=== PATIENT | female | born 1995 | race Caucasian/White ===

== ENCOUNTER 2025-01-17 10:00 | Inpatient (IN) | payer OTHER, SELFPAY ==
[2025-01-17] VITALS (65 sets, daily range): BP systolic 101–140; BP diastolic 58–120; PULSE 47–216; RESP 13–18; TEMP 36.3–36.8; O2SAT 86–100; BMI 45.6
--- NOTE | 2025-01-17 11:59 | WPDANESEPPF ---
Anes - Initial Pre Proc Eval Procedure: Operation Date: 01/17/25 12:00 Proposed Procedures p Primary Section - Ravin Lemus MD Date/Time: 01/17/25 11:59 Surgeon: Ravin Lemus MD Pre Op Diagnosis: C/S Patient Data Age: 29 Gender: F Height: Weight: Last Vital Signs Pulse 75 01/17/25 11:31 BP 136/91 H 01/17/25 11:31 Allergies Allergy/AdvReac Type Severity Reaction Status Date / Time No Known Allergies Allergy Verified 01/11/25 13:05 Home Medications ?Medication ?Instructions ?Recorded ?Confirmed ?Type MFS-aomi-UQ-omega 3-fat com #1 27 cap PO DAILY 01/11/25 History mg-1 mg-300 mg capsule Patient hx anesthesia problems: none Family hx anesthesia problems: none Results Review: All pre-operative results and documents have been reviewed as part of the pre-operative evaluation. [facility] Past Medical History Medical History (Updated 01/17/25 @ 12:00 by Rush Hugo MD) Breech presentation Obesity Surgical History Surgical History S/P wisdom tooth extraction Family History Family History Sibling Asthma Depression Grandparent CVA (cerebrovascular accident due to intracerebral hemorrhage) Social History Social History Substance use: never Spiritual care concerns: No Anes - Eval Final PreProcedure Day of Procedure 01/17/25 11:59 Patient weight: morbidly obese Heart: regular rate and rhythm Lungs: clear to auscultation Airway: Mallampati scale class II Neurological: alert and oriented Last oral intake: >/= 8 hours ASA classification: III Emergent: no Anesthetic plan: proceed Anesthesia type and monitoring: regional spinal and standard monitoring Results Review: All pre-operative results and documents have been reviewed as part of the pre-operative evaluation. Informed Consent: The patient's anesthetic plan and its attendant risks and benefits were discussed with the patient/family/POA. Questions were solicited and answers provided to the satisfaction of the patient/family/POA.
[2025-01-17 12:03] LABS: Hematocrit 36.4 % (37.0-47.0); Hemoglobin 12.5 g/dL (12.0-15.0)
--- OUTSIDE RECORDS SUMMARY | 2025-01-17 12:06 | XMS_ITS | Encounter Summary ---
Author Organization [facility] Address [address] [place] [address] Phone Care Team Providers Care Luggage Attendant Name Role Phone Miscellaneous, Not In File Primary Care Provider Unavailable Encounter Details Date Type Department Care Team (Late st Contact Info) Description 02/09/2018 Orders Only [facility] ProviderMariah MD [address] [place] [id number] Social History Tobacco Use Types Packs/Day Years Used Date Smoking Tobacco: Never Smokeless Tobacco: Never Alcohol Use Standard Drinks/Week Comments Yes 0 (1 standard drink = 0.6 oz pur e alcohol) Comments No Sex and Gender Information Value Date Recorded Sex Assigned at Not on file Legal Sex Female 7:10 PM CDT Gender Identity Not on file Sexual Orientation Not on file Occupation Industry Job Start Date Job End Date [employer] Not on file Not on file Not on file documented as of this encounter Plan of Treatment Not on file documented as of this encounter Procedures Procedure Name Priority Date/Time Associated Diagnosis Comments DISCHARGE LABORATORY CUMULATIVE REPORT 02/09/2018 12:00 AM CDT documented in this encounter Results * DISCHARGE LABORATORY CUMULATIVE REPORT (02/09/2018 12:00 AM CDT) Narrative 02/09/2018 12:00 AM CDT Ordered by an unspecified provider. Historical Provider LAB BLOOD ORDERABLES Gabi l Result documented in this encounter Visit Diagnoses Not on filedocumented in this encounter Care Teams Luggage Attendant Relationship Specialty Start Date End Date Miscellaneous, Not In File PCP - General 09/07/17 documented as of this encounter
--- OUTSIDE RECORDS SUMMARY | 2025-01-17 12:06 | XMS_ITS | Clinical Summary ---
Author Organization [facility] Address [address] [place] [id number] Care Team Providers Care Batch Mixer Name Role Phone Miscellaneous, Not In File Primary Care Provider Unavailable Allergies No known active allergies Medications No known medications Active Problems No known active problems Immunizations Immunization Administration Dates Next Due HPV9 09/08/2017,03/01/2017 Family History Medical History Relation Name Comments Stroke Maternal Grandfather Stroke; Relation Name Status Comments Maternal Grandfather Social History Tobacco Use Types Packs/Day Years Used Date Smoking Tobacco: Never Smokeless Tobacco: Never Tobacco Cessation:Counseling Given: Not Answered Alcohol Use Standard Drinks/Week Comments Yes 0 (1 standard drink = 0.6 oz pur e alcohol) PHQ-2 Answer Date Recorded PHQ-2 Score 0 06/24/2019 Personal Safety Answer Date Recorded Getting School Help Needed Not on file 12/31 Comments No Sex and Gender Information Value Date Recorded Sex Assigned at Not on file Legal Sex Female 7:10 PM CDT Gender Identity Not on file Sexual Orientation Not on file Occupation Industry Job Start Date Job End Date [employer] Not on file Not on file Not on file Obstetrics History Para Term AB IAB SAB Ectopic Multiple Livin g Live Births 0 0 0 0 0 0 0 0 0 0 0 Last Filed Vital Signs Vital Sign Reading Time Taken Comments Blood Pressure 122/92 04/07/2024 11:03 AM CDT Pulse - - Temperature - - Respiratory Rate - - Oxygen Saturation - - Inhaled Oxygen Concentration - - Weight 126.1 kg (278 lb) 04/07/2024 11:03 AM CDT Height 167.6 cm (5' 6 ) 04/07/2024 11:03 AM CDT Body Mass Index 44.87 04/07/2024 11:03 AM CDT Plan of Treatment Health Maintenance Due Date Last Done Comments Hepatitis C Screening 1993 DTaP/Tdap/Td Vaccine (1 - Tdap) 2004 Varicella Vaccines (1 of 2 - 13+ 2-dose series) 2006 Hepatitis B Screening 2011 HPV Vaccines (3 - 3-dose series) 12/01/2017 09/08/2017, 03/01/2017 Depression Screening 02/11/2020 02/10/2019, 02/10/20 18 Cervical Cancer Screening 04/02/2024 04/02/2023 Covid-19 Vaccine ( season) 2024 08/19/2023, 10/05/2021, 02/15/2021, Additional history exists Influenza Vaccine (#1) 2024 , 07/29/2021, 07/30/2020, Additional history exists Regular Well Visit/Exam 18-64 04/07/2025 04/07/2024, 04/02/2023, 07/28/2021, Additional history exists Pneumococcal vaccine <65 Aged Out No longer eligible based on patient's age to complete this topic Procedures Procedure Name Priority Date/Time Associated Diagnosis Comments PAP AND HIGH RISK HPV, REFLEX TO GENOTYPING Routine 04/02/2023 10:12 AM CDT Encounter for gynecological examination (general) (routine) without abnormal findings from Last 3 Months or Most Recently Relevant to Health Maintenance Results * Pap and High Risk HPV, reflex to Genotyping (04/02/2023 10:12 AM CDT) Thin prep (Pap test) 04/02/2023 10:12 AM CDT 04/02/2023 10:12 AM CDT Narrative PATHOLOGY CH - 04/06/2023 11:33 AM CDT [facility] Department of Pathology [address] [place] [address] Final Report with Addendum Note to Patients: This report may contain a detailed description of human tissue sent by a health care provider to the laboratory for pathologic evaluation. The content of this report is essential for diagnosis and may provide important critical findings. This information may be unfamiliar to patients to review without a medical professional present. It is advised that the patient review this report in the presence of a health care provider who can answer questions and explain the details. Patient Name: GISSELL NOGUERA Address: [address] [place] [address] Gender: F : 1995 (Age: 27) Service: Location: N : [id number] [facility] #: [id number] Patient Type: SPECIMEN Taken: 04/02/2023 Received: 04/02/2023 Accessioned:: 04/05/2023 Reported: 04/06/2023 Physician(s): Kimmie Bourne RN, FAN BLADE ALIGNER Kimmie Bourne RN, FAN BLADE ALIGNER Diagnosis: SOURCE OF SPECIMEN SCREENING THIN PREP IMAGED PAP w/ HPV: STATEMENT OF ADEQUACY - Specimen satisfactory for interpretation; endocervical/transformation zone component absent or insufficient GENERAL CATEGORIZATION: - Negative for intraepithelial lesion or malignancy ROGER Castle(ASCP) Report Electronically Reviewed and Signed Out By [facility]) 04/06/2023 11:33:07Addenda: HPV Test Interpretation NEGATIVE for types 16, 18, 31, 33, 35, 39, 45, 51, 52, 56, 58, 59, 66 and 68. Test performed utilizing Gen-Probe Aptima assay. ROGER Spangler(ASCP)Report Electronically Reviewed and Signed Out By KARI SpanglerASC) 04/05/2023 16:26:51 Specimen(s) Received: A: SCREENING THIN PREP IMAGED PAP w/ HPV Clinical History: Last Menstrual Period: 03/31/23 The Pap test is a screening test used to aid in the detection of cervical cancer and its precursors. It should not be the sole means by which malignant and premalignant lesions are diagnosed. Both false negative and false positive results may occur. It also has poor sensitivity for the detection of endometrial lesions and should not be used to evaluate suspected endometrial abnormalities. For these reasons it is most important to obtain Pap tests at regular intervals. The performance characteristics of some immunohistochemical stains, fluorescence in-situ hybridization tests and immunophenotyping by flow cytometry cited in this report (if any) were determined by the Surgical Pathology Department at [facility] as part of an ongoing associate quality engineer program and in compliance with federally mandated regulations drawn from the Clinical Laboratory Improvement Act of 1988 (CLIA '88). Some of these tests rely on the use of analyte specific reagents and are subject to specific labeling requirements by the US Food and Drug Administration. Such diagnostic tests may only be performed in a facility that is certified by the Department of Health and Human Services as a high complexity laboratory under CLIA '88. The FDA has determined that such clearance or approval is not necessary. This test is used for clinical purposes. It should not be regarded as investigational or for research. Nevertheless, federal rules concerning the medical use of analyte specific reagents require that the following disclaimer be attached to the report: This test was developed and its performance characteristics determined by the Surgical Pathology Department [facility]. It has not been cleared or approved by the U. S. Food and Drug Administration. Kimmie Bourne NP LAB CYTOLOGY ORDERABLES Gabi andrade Result PATHOLOGY [address] [place] [address] from Last 3 Months or Most Recently Relevant to Health Maintenance Care Teams Batch Mixer Relationship Specialty Start Date End Date Miscellaneous, Not In File PCP - General 09/07/17
--- OUTSIDE RECORDS SUMMARY | 2025-01-17 12:06 | XMS_ITS | Referral Summary ---
Author Organization [facility] Address [address] [place] [phone] Care Team Providers Care Chucking Machine Set Up Operator Tool Name Role Phone Miscellaneous, Not In File Primary Care Provider Unavailable Allergies No known active allergies Medications No known medications Active Problems No known active problems Immunizations Immunization Administration Dates Next Due HPV9 09/08/2017,03/01/2017 Social History Tobacco Use Types Packs/Day Years [...] file Not on file Not on file Last Filed Vital Signs Vital Sign Reading [...] 04/07/2024 11:03 AM CDT Plan of Treatment Not on file Procedures Procedure Name Priority Date/Time Associated Diagnosis [...] PATHOLOGY CH - 04/06/2023 11:[address] [facility] Department of Pathology [address] [place] [id number] Final Report with Addendum Note to Patients: [...] the details. Patient Name: GISSELL NOGUERA Address: [address] [place] [address] Gender: F : 1995 (Age: 27) Service: Location: N : [id number] Hospital #: [id number] Patient Type: SPECIMEN Taken: 04/02/2023 Received: 04/02/2023 Accessioned:: 04/05/2023 Reported: 04/06/2023 Physician(s): Kimmie Bourne RN, DRY END TESTER Kimmie Bourne RN, DRY END TESTER Diagnosis: SOURCE OF SPECIMEN SCREENING THIN PREP IMAGED PAP w/ HPV: STATEMENT OF ADEQUACY - Specimen satisfactory for interpretation; endocervical/transformation zone component absent or insufficient GENERAL CATEGORIZATION: - Negative for intraepithelial lesion or malignancy ROGER Castle(ASCP) Report Electronically Reviewed and Signed Out By ROGER Castle(ASCP) 04/06/2023 11:33:07Addenda: HPV Test Interpretation NEGATIVE for types 16, 18, 31, 33, 35, 39, 45, 51, 52, 56, 58, 59, 66 and 68. Test performed utilizing Gen-Probe Aptima assay. ROGER Spangler(ASCP)Report Electronically Reviewed and Signed Out By ROGER Spangler(ASCP) 04/05/2023 16:26:51 Specimen(s) Received: A: SCREENING THIN [...] determined by the Surgical Pathology Department at [facility] as part of an ongoing quality assurance director program and in compliance with federally mandated [...] characteristics determined by the Surgical Pathology Department [facility]. It has not been cleared or approved by the U. S. Food and Drug Administration. Kimmie Bourne NP LAB CYTOLOGY ORDERABLES Gabi andrade Result PATHOLOGY [address] [place] [address] from Last 3 Months or Most Recently Relevant to Health Maintenance Care Teams Chucking Machine Set Up Operator Tool Relationship Specialty Start Date End Date Miscellaneous, Not In File PCP - General 09/07/17
[2025-01-17] MEDS: ACETAMINOPHEN 500 MG TABLET 1000 MG PO (12:20)
[2025-01-17] MEDS: LACTATED RINGERS 1,000 ML 125 ML IV CONT ×2 (12:26→13:27)
[2025-01-17 13:00] LABS: HIV 1/2 Ab P24 Ag Result Negative (Negative)
--- NOTE | 2025-01-17 13:06 | LDADM ---
This patient, Gissell Whaley, was admitted to Labor/Delivery/Recovery 119 on at 09:59. Plans for labor, pain management and were discussed with patient. Patient/family oriented to hospital policies and general routines including ID bracelet, bed and alarms, visiting hours, pain management, procedures, bathroom and other care routines, personal items, smoking policy, room service/diet and guest tray routines, infant security routines, and visiting hours. Patient/Family are encouraged to report perceived risks to care and to ask questions if they do not understand what they are told or what they should do. See OBIX for further documentation.
[2025-01-17 13:27] LABS: Syphilis IgG/IgM Antibody Negative (Negative)
[2025-01-17 13:47] LABS: Basophils Percent Auto 0.3 % (0.2-1.2); Eosinophils Absolute Auto 0.1 K/mm3 (0-0.3); Eosinophils Percent Auto 0.5 % (0-4.4); Hematocrit 37.4 % (37.0-47.0); Hemoglobin 12.6 g/dL (12.0-15.0); Immature Granulocyte Absolute 0.12 K/mm3 (0.00-0.031); Immature Granulocyte Percent A 1.1 % (0-0.5); Lymphocytes Absolute Auto 2.09 K/mm3 (0.9-3.2); Lymphocytes Percent Auto 18.4 % (18.3-44.2); Mean Corpuscular HGB Conc 33.7 g/dl (32-36); Mean Corpuscular Hemoglobin 31.9 pg (26-34); Mean Corpuscular Volume 94.7 fl (80-100); Mean Platelet Volume 11.4 fl (7.4-10.4); Monocytes Absolute Auto 0.7 K/mm3 (0.1-0.6); Monocytes Percent Auto 6.1 % (2.6-8.5); Neutrophils Absolute Auto 8.4 K/mm3 (1.3-6.7); Neutrophils Percent Auto 73.6 % (45.5-73.1); Platelet Count Result 216 k/mm3 (150-375); Red Blood Count 3.95 M/mm3 (4.2-5.4); Red Cell Distribution Width 13.5 % (11.5-14.5); White Blood Count 11.4 K/mm3 (4.5-10.0)
[2025-01-17] MEDS: FAMOTIDINE 20 MG/2 ML VIAL IV PUSH (14:07)
[2025-01-17] MEDS: ONDANSETRON INJ 4 MG/2 ML VIAL IV PUSH (14:08)
[2025-01-17] MEDS: ceFAZolin 3 GM/D5W 100 ML 100 ML IVPB (14:13)
--- NOTE | 2025-01-17 14:13 | PM.IMHP ---
H&P: HPI History of Present Illness Date/Time: 01/17/25 14:13 Chief Complaint: rupture of membranes Narrative: Patient is a 29 year old who presents for primary c section indicated for breech presentation and SROM at 38 weeks gestation. Her has been complicated by persistent breech presentation and obesity. testing has been reactive. No other complications. Reports SROM at 0700 this AM of clear fluid with continued leakage since then. No strong contractions, vaginal bleeding, and reports good movement. Denies headaches, vision changes, chest pain, dyspnea, RUQ pain or epigastric pain. Review of Systems Review of Systems: All systems reviewed & are unremarkable except as noted in HPI and below PMFSH Past Medical History Medical History (Updated 01/17/25 @ 14:16 by Ravin Lemus MD) Breech presentation Obesity Surgical History Surgical History S/P wisdom tooth extraction Family History Family History Sibling Asthma Depression Grandparent CVA (cerebrovascular accident due to intracerebral hemorrhage) Social History Social History Smoking status: Never smoker Substance use: never Do You Feel Safe in your Home?: Yes Lack of Transportation: No Lack of Food: Never True Current Housing: I Have Housing Concerned About Future Housing: No Difficulty Paying Gas/Electric Bills: No Difficulty Paying for Meds: No Currently Unemployed: No Education: Bachelor's Degree Difficulty w/ Childcare or Family Care: No Spiritual care concerns: No Meds Home Medications and Allergies Home Medications ?Medication ?Instructions ?Recorded ?Confirmed ?Type TLB-ynsk-AF-omega 3-fat com #1 27 cap PO DAILY 01/11/25 History mg-1 mg-300 mg capsule Allergies Allergy/AdvReac Type Severity Reaction Status Date / Time No Known Allergies Allergy Verified 01/17/25 12:03 Vital Signs Vital Signs - 24 hr 01/17/25 10:46 01/17/25 11:01 01/17/25 11:16 Pulse Rate 70 77 81 Blood Pressure 136/96 H 132/81 140/97 H Oxygen Delivery 01/17/25 11:31 01/17/25 12:01 01/17/25 13:06 Pulse Rate 75 75 Blood Pressure 136/91 H 132/81 Oxygen Delivery Room Air Exam Const: General: comfortable and no acute distress HENMT: Mouth: Yes moist mucous membranes Resp: Effort & Inspection: normal respiratory effort Cardio: Rate: regular rate Skin: General skin exam: normal color Extrem: General: normal to inspection Psych: Mental Status: mental status grossly normal H&P: Results Labs Labs: Short CBC 01/17/25 01/17/25 Range/Units 11:47 11:48 WBC 11.4 H (4.5-10.0) K/mm3 Hgb 12.6 12.5 (12.0-15.0) g/dL Hct 37.4 36.4 L (37.0-47.0) % Plt Count 216 (150-375) k/mm3 Assessment and Plan Assessment and plan (1) Rupture of membranes: Status: Acute Assessment and Plan: - rupture of clear fluid at 0700 this AM - ROMPlus positive - will proceed with PCS (2) Breech presentation: Code(s): O32.1XX0 - Maternal care for breech presentation, not applicable or unspecified Status: Acute Assessment and Plan: - breech presentation confirmed on admission - risks and benefits of primary c section discussed with patient who voices understanding - will proceed with primary c section
[2025-01-17] MEDS: OXYTOCIN 30 UNITS/NS 500 ML 30 UNITS/500 ML BAG 125 UNITS IV CONT (14:16)
--- NOTE | 2025-01-17 14:17 | WPDHPUPDATE1 ---
History and Physical Update Update Date/Time: 01/17/25 14:17 History and Physical has been reviewed, including an updated exam of the patient. There are NO changes in the patient's condition. Risks, benefits, and alternatives have been discussed and questions answered. Patient agrees to proceed with procedure.
--- NOTE | 2025-01-17 17:48 | OBPPTRN ---
Patient transferred to post room #283 via stretcher. Support person present. Oriented to unit, room, information board, rooming in, admission packet and security measures. Patient verbalizes understanding.
[2025-01-17] MEDS: ACETAMINOPHEN 325 MG TABLET 650 MG PO ×2 (18:37→23:51)
[2025-01-17] MEDS: KETOROLAC 15 MG/ML VIAL (*BKC) IV PUSH (18:38)
[2025-01-17] MEDS: DEXTROSE 5%/0.45% SOD CHL 1,000 ML 125 ML IV CONT (20:35)
[2025-01-18] MEDS: KETOROLAC 15 MG/ML VIAL (*BKC) IV PUSH ×3 (00:05→11:40)
[2025-01-18] MEDS: DEXTROSE 5%/0.45% SOD CHL 1,000 ML 125 ML IV CONT (03:25)
[2025-01-18] MEDS: ACETAMINOPHEN 325 MG TABLET 650 MG PO ×4 (05:30→23:54)
[2025-01-18 06:19] LABS: Basophils Absolute Auto 0.1 K/mm3 (0.0-0.1); Basophils Percent Auto 0.9 % (0.2-1.2); Eosinophils Absolute Auto 0.2 K/mm3 (0-0.3); Eosinophils Percent Auto 2.3 % (0-4.4); Hematocrit 41.8 % (37.0-47.0); Hemoglobin 13.3 g/dL (12.0-15.0); Immature Granulocyte Absolute 0.11 K/mm3 (0.00-0.031); Immature Granulocyte Percent A 1.4 % (0-0.5); Lymphocytes Absolute Auto 1.43 K/mm3 (0.9-3.2); Lymphocytes Percent Auto 18.6 % (18.3-44.2); Mean Corpuscular HGB Conc 31.8 g/dl (32-36); Mean Corpuscular Hemoglobin 27.5 pg (26-34); Mean Corpuscular Volume 86.5 fl (80-100); Mean Platelet Volume 9.6 fl (7.4-10.4); Monocytes Absolute Auto 0.6 K/mm3 (0.1-0.6); Monocytes Percent Auto 7.8 % (2.6-8.5); Neutrophils Absolute Auto 5.3 K/mm3 (1.3-6.7); Platelet Count Result 320 k/mm3 (150-375); Red Blood Count 4.83 M/mm3 (4.2-5.4); Red Cell Distribution Width 14.6 % (11.5-14.5); White Blood Count 7.7 K/mm3 (4.5-10.0)
[2025-01-18] MEDS: MULTIVIT/MIN/PREN/FOL AC/IRON TABLET 1 TAB PO (07:15)
[2025-01-18] MEDS: DOCUSATE SODIUM 100 MG CAPSULE PO ×2 (07:15→17:15)
[2025-01-18] MEDS: SIMETHICONE 80 MG TAB.CHEW PO ×3 (07:15→17:15)
[2025-01-18] MEDS: HYDROcodone/acetaminophen (*CRX) 5-325 MG TABLET 1 TAB PO ×2 (07:46→19:22)
[2025-01-18 08:15] VITALS: BP 118/75; PULSE 73; RESP 16; TEMP 36.6; O2SAT 97
--- NOTE | 2025-01-18 08:31 | P.PNOB_ITS ---
OB - PN: Subj Subjective Date/time seen: 01/18/25 08:31 Patient comments: no complaints, pain well controlled, tolerating diet and flatus present OB - PN: Obj Data Labs 01/18/25 04:34 Labs: Laboratory Results - last 24 hr 01/17/25 01/17/25 01/17/25 11:47 11:48 12:46 WBC 11.4 H RBC 3.95 L Hgb 12.6 12.5 Hct 37.4 36.4 L MCV 94.7 MCH 31.9 MCHC 33.7 RDW 13.5 Plt Count 216 MPV 11.4 H Immature Gran % (Auto) 1.1 H Neut % (Auto) 73.6 H Lymph % (Auto) 18.4 [place] % (Auto) 6.1 Eos % (Auto) 0.5 Baso % (Auto) 0.3 Lymph # (Auto) 2.09 [place] # (Auto) 0.7 H Eos # (Auto) 0.1 Baso # (Auto) 0.0 Abs Immat Gran (auto) 0.12 H Absolute Neuts (auto) 8.4 H Absolute Nucleated RBC 0.000 Nucleated RBC % 0.0 Syphilis IgG/IgM Ab Negative HIV 1&2 Ab/P24 Ag 4thGn Negative Blood Type A Positive Antibody Screen Negative 01/18/25 04:34 WBC 7.7 RBC 4.83 Hgb 13.3 Hct 41.8 MCV 86.5 D MCH 27.5 D MCHC 31.8 L RDW 14.6 H Plt Count 320 MPV 9.6 Immature Gran % (Auto) 1.4 H Neut % (Auto) 69.0 Lymph % (Auto) 18.6 [place] % (Auto) 7.8 Eos % (Auto) 2.3 Baso % (Auto) 0.9 Lymph # (Auto) 1.43 [place] # (Auto) 0.6 Eos # (Auto) 0.2 Baso # (Auto) 0.1 Abs Immat Gran (auto) 0.11 H Absolute Neuts (auto) 5.3 Absolute Nucleated RBC 0.000 Nucleated RBC % 0.0 Syphilis IgG/IgM Ab HIV 1&2 Ab/P24 Ag 4thGn Blood Type Antibody Screen OB - PN A/P Plan day: 1 Comments: Post Op LTCS - no problems, routine recovery Time Spent With Patient Time: Total time spent is greater than 50% in coordination of care (as documented) at patient's floor/unit and/or counseling patient: Exam 2 Const: General: cooperative, healthy appearing, comfortable and no acute distress Resp: Auscultation: no crackles, no rales, no rhonchi and no wheezes Cardio: Rhythm: regular rhythm Heart sounds: no click and no murmurs GI: Inspection: non-distended Auscultation: normal bowel sounds Extrem: General: normal to inspection, no pedal edema and no calf tenderness
--- NOTE | 2025-01-18 09:38 | PC.NURSE ---
0850: Introductions were made and communication board updated. Mother states that has been going well and latches easily. Mother attempted latching while this RN at bedside in cradle position. Mothers breast are larger, this RN suggested trying to place in football position for a deeper latch and for comfort. Assisted mother with placing infant in football position and mother was able to latch independently. Mother denies any pain or discomfort. Encouraged understanding of the benefits of skin to skin, stimulating with massage touch, changing positions to encourage wakefulness, how to watch for early feeding cues, responsive feeding, feeding on demand (aiming for 8-12 times in 24 hours, about every 2-3 hours), milk production, building/maintaining a milk supply, duration of feeding, signs of adequate intake/output and how to record on the feeding sheet. Mother voiced understanding of skin to skin, stimulating with massage touch, responsive feedings, hand expressed colostrum (this was demonstrated while latching and she was able to express colostrum), talking to infant to encourage if it has been 2 -2.5 hours since the start of the last , to call if infant does not latch, or if there is discomfort with .
[2025-01-18 12:56] VITALS: BP 143/85; PULSE 81; RESP 16; TEMP 36.6; O2SAT 98
--- NOTE | 2025-01-18 13:14 | WPDANLDPN2 ---
Anes-Prog Note L&D Date/Time: 01/18/25 13:14 Neuro status: Neuro function grossly intact. Vital Signs: Last Vital Signs Temp 36.6 C 01/18/25 12:56 Pulse 81 01/18/25 12:56 Resp 16 01/18/25 12:56 BP 143/85 H 01/18/25 12:56 Pulse Ox 98 01/18/25 12:56 O2 Del Method Room Air 01/17/25 17:25 Pain score (VAS): 0 I/O: Intake & Output 01/17/25 01/18/25 01/18/25 23:59 07:59 15:59 Intake Total 1300 2204.2 Output Total 550 1600 Balance 750 604.2 Patient feedback: Patient satisfied with anesthetic care.
--- NOTE | 2025-01-18 13:14 | WPDANLDNPN2 ---
Anes-Prog Note L&D-Neuraxial Date/Time: 01/18/25 13:14 Patient feedback: Patient satisfied with post-operative pain management.
[2025-01-18] MEDS: IBUPROFEN 600 MG TABLET PO ×2 (17:15→23:54)
[2025-01-18 23:55] VITALS: BP 135/92; PULSE 84; RESP 18; TEMP 36.7; O2SAT 98
[2025-01-19] MEDS: IBUPROFEN 600 MG TABLET PO ×3 (05:16→17:46)
[2025-01-19] MEDS: ACETAMINOPHEN 325 MG TABLET 650 MG PO ×3 (05:16→17:46)
[2025-01-19] MEDS: HYDROcodone/acetaminophen (*CRX) 5-325 MG TABLET 1 TAB PO ×2 (05:16)
[2025-01-19 07:45] VITALS: BP 130/85; PULSE 82; RESP 16; TEMP 37.3; O2SAT 97
--- NOTE | 2025-01-19 08:30 | PC.NURSE ---
Met with mother to discuss needs related to . She states that everything seems to be going well so far. She has some nipple soreness and is using hydrogel pads she brought from home. Encouraged her to call out for a latch check or any assistance needed today.
[2025-01-19] MEDS: DOCUSATE SODIUM 100 MG CAPSULE PO ×2 (08:45→16:34)
[2025-01-19] MEDS: MULTIVIT/MIN/PREN/FOL AC/IRON TABLET 1 TAB PO (08:45)
[2025-01-19] MEDS: SIMETHICONE 80 MG TAB.CHEW PO ×3 (08:45→16:34)
--- NOTE | 2025-01-19 16:08 | P.PCNOB_ITS ---
OB - Delivery Note Procedure Delivery date: 01/19/25 Pre-op diagnosis: Breech Presentation and Other (Spontaneous rupture of membranes) Post-op Diagnosis: Same Delivery monitor: External FHT Prior to decision for section, ACOG/SMFM labor guidelines were considered and discussed with the patient and staff. Decision made to proceed with the section.: Yes Procedure Performed: Primary Primary branch: low cervical, transverse Surgeon: Ravin Lemus MD Anesthesia type: Epidural Description of Procedure/Findings: The patient was taken to the operating room where she was placed in the dorsal supine position with a leftward tilt. The electronic monitor was placed and heart rate was found to be reassuring. She was prepped and draped in the normal sterile fashion, and anesthesia was checked to be adequate. A Pfannenstiel skin incision was made with the scalpel and carried through to the underlying layer of fascia with the scalpel. The fascia was incised in the midline and the incision extended laterally with the Castillo scissors. The superior aspect of the fascial incision was then grasped with Ginger clamps, elevated, and the underlying rectus muscles dissected off bluntly and with Castillo scissors. Attention was then turned to the inferior aspect of the fascial incision, which in similar fashion was grasped, elevated, and the rectus muscles dissected off.? The rectus muscles were then in the midline, and the peritoneum entered bluntly. The peritoneal incision was extended superiorly and inferiorly with good visualization of the bladder. With the bladder blade providing retraction and visualization, the lower uterine segment was incised in a transverse fashion with the scalpel. The uterine incision was then extended laterally. The bladder blade was removed and the 's breech was elevated and delivered atraumatically. The remainder of the infant was then delivered without difficulty, and the infant's nose and mouth were suctioned with the bulb suction. The umbilical cord was doubly clamped and cut. The was then handed off to the waiting nursing staff. Specimens then obtained as listed below. The placenta was then removed manually and the uterus was exteriorized and cleared of all clots and debris. The uterine incision was repaired with 0- Monocryl in a running, interlocked fashion. The posterior cul-de-sac was manually cleared of all clots and debris. The uterus was returned to the ab domen. The gutters were then manually cleared of all clots and debris.? The uterine incision was visualized to be hemostatic. The fascia was reapproximated with 0-Vicryl in a running fashion. The subcutaneous tissues were irrigated with warmed normal saline, and hemostasis was assured. The subcutaneous tissue was greater than 2 cm and closed in a running fashion with 2-0 plain gut suture.?The skin was closed with 4-0 monocryl in a running subcuticular stitch. Fundal pressure was applied to express remaining intrauterine clots and debris. The patient tolerated the procedure well. Sponge, lap, and needle counts were correct times three per nursing. The patient was taken to the recovery room in stable condition. Specimen: No Pathology: None sent Complications: No immediate complications Condition: Stable Disposition: [place] Baby Date of : 01/17/25 Gestational Age by Date: 36 gender: Male Weight (pounds): 8 Weight (ounces): 3 presentation: angelica breech Placenta delivery description: Expressed Cord Vessel Description: 3 Vessels and Delayed Cord Clamping
[2025-01-19 21:07] VITALS: BP 134/93; PULSE 106; RESP 18; TEMP 36.4; O2SAT 99
[2025-01-20] MEDS: ACETAMINOPHEN 325 MG TABLET 650 MG PO ×2 (00:09→06:13)
[2025-01-20] MEDS: IBUPROFEN 600 MG TABLET PO ×2 (00:09→06:13)
--- NOTE | 2025-01-20 08:00 | PC.NURSE ---
Consulted with mother concerning needs and she shared her ability to independently latch infant optimally without pain. Mother is feeding appropriately for growth of and understands stimulating to eat if needed. Infant has had appropriate feedings in the last 24 hours meets the outcomes for weight, output, blood sugar and jaundice at this time. Reinforced understanding of milk production, transition of milk, signs of adequate intake, transition of stool, prevention/relief of engorgement, plugged ducts, mastitis, responsive , community resources, and when to call a provider using the resource of the feeding sheet along with the mom and baby guide. She has a breast pump at home and declines a SDC referral. Mother voiced understanding of the information shared, is confident to continue effectively her infant at home, when to call for assistance, denies any additional assistance or education at this time. Reported to the Primary RN.
--- NOTE | 2025-01-20 08:19 | P.PNOB_ITS ---
OB - PN: Subj Subjective Date/time seen: 01/20/25 08:19 Patient comments: no complaints, pain well controlled, tolerating diet and flatus present OB - PN: Obj Data Labs 01/18/25 04:34 OB - PN A/P Plan day: 1 Comments: Post Op LTCS - no problems, routine recovery Time Spent With Patient Time: Total time spent is greater than 50% in coordination of care (as documented) at patient's floor/unit and/or counseling patient: Exam 2 Const: General: cooperative, healthy appearing, comfortable and no acute distress Resp: Auscultation: no crackles, no rales, no rhonchi and no wheezes Cardio: Rhythm: regular rhythm Heart sounds: no click and no murmurs GI: Inspection: non-distended Auscultation: normal bowel sounds Extrem: General: normal to inspection, no pedal edema and no calf tenderness
[2025-01-20 08:30] VITALS: BP 137/94; PULSE 77; RESP 16; TEMP 36.7; O2SAT 97
[2025-01-20] MEDS: DOCUSATE SODIUM 100 MG CAPSULE PO (08:36)
[2025-01-20] MEDS: MULTIVIT/MIN/PREN/FOL AC/IRON TABLET 1 TAB PO (08:36)
[2025-01-20] MEDS: SIMETHICONE 80 MG TAB.CHEW PO (08:36)
[2025-01-20 09:20] VITALS: BP 138/88; PULSE 72
--- NOTE | 2025-01-20 10:30 | PC.NURSE ---
Patient viewed the discharge video Mother & Baby Care, The First Two Weeks . Patient was given the opportunity and encouraged to ask questions. Patient verbalized understanding of information shared and has been given the mother/baby guide for home reference.
[2025-01-22 10:18] VITALS: BP 132/89; PULSE 86; RESP 18; TEMP 36.6; O2SAT 100
--- NOTE | 2025-01-22 18:29 | PM.OBDSVD ---
DS: Admitting Diagnosis Discharge Date 01/20/25 Admitting Diagnosis breecg OB - DS: Summary OB Procedures : None OB Procedures Intrapartum: OB Procedures: : None Peripartum Data Procedures: Procedures Operation Date: 01/17/25 12:00 Actual Procedure Side Surgeon p Primary Section Not Applicable Ravin Lemus MD Time Spent with Patient Time attestation: Total time spent providing and/or coordinating discharge services: Discharge Plan Discharge Attending physician on discharge: Ravin Lemus Consulting providers: Yoko Garza; Fer Lindsay; Karen Grier; Rush Hugo Discharging Clinician: Yoko Garza Patient Disposition: Home, Self-Care Activity: pelvic rest Diet: regular Wound Care Instructions: incision open to air Discharge Instructions: Education: Mom and Baby Guide Given to: Mother Follow-Up: Call your delivering provider's office for an appointment to be seen in: Call office for an appointment [facility]. Appointment Date/Time: January 22, 2025 at 10:00 am What to expect at your follow-up visit: Physical Assessment Call [phone] if you are unable to keep your appointment time. BREAST CARE: * Wear a snug supportive bra. * For engorgement discomfort: Breast Feeding: * Apply warm moist washcloths * Express milk as needed to relieve engorgement * Wear loose clothing Bottle Feeding: * May apply ice packs * For sore nipples: * Identify correct latch-on * Apply warm moist washcloths before and after nursing * Air dry nipples after nursing * May apply Lansinoh cream to nipples ABDOMINAL INCISION: (if applicable) * Allow incision to air dry * Do NOT use lotions for powders on your incision * When showering, allow soap and water to run over the incision, but do not wash incision EPISIOTOMY/PERINEAL CARE: * Until bleeding stops, use your ben bottle after urinating * Change your pad frequently throughout the day * You may take sitz baths several times a day (fill your bathtub with warm water and soak for 20 minutes.) Do NOT bathe in the water * No tub baths until seen by your physician - You may shower ACTIVITY: * Rest as much as possible. * Do not exercise or lift anything heavier than your baby (such as laundry or other children.) * Avoid stairs or driving as much as possible. * Do not put anything into the vagina. No douching, tampons, or sexual activity until seen by physician. NOTIFY PHYSICIAN IF YOU HAVE ANY QUESTIONS OR IF ANY OF THE FOLLOWING SYMPTOMS OCCUR: * If your episiotomy or incision becomes red, swollen, or more painful than what you have experienced in the hospital. * If your vaginal bleeding becomes foul smelling. * If your vaginal bleeding becomes more heavy than a period or if your bleeding changes from pink to bright red. However, you may pass an occasional walnut-sized clot once or twice for the first week . * If you experience a sharp, shooting pain in you calves. * If you discover a hard, reddened area on your breast or if you experience flu-like symptoms. DIET: * Eat regular, well-balanced meals. * Drink plenty of fluids daily. If , drink to thirst. Patient Instructions: Antibiotic Form, Your Baby (DC), (DC) Patient Language: Swiss Stand Alone Forms: General Discharge Information Follow-up/Referrals: Ravin Lemus MD [Physician] - 1 Week Discharge Medications: New hydrocodone-acetaminophen 5-325 mg Tablet 1 tablet PO Q3H PRN (Reason: Breakthrough Pain Rated 4-6) 10 Days Qty: 25 0RF Continued [id number] 3-fat com #1 27-1-300 mg capsule PO DAILY Date of admission: 01/17/25 10:00 Primary Care Provider: UNKNOWN,DOCTOR Admitting Provider: Ravin Lemus Attending physician on admission: Ravin Lemus Condition: Stable
== END 2025-01-20 11:00 | disposition home or self-care (01) | DRG 788 ==
LOC: ANHSURGERY 10:34 → ANHLDR 10:35 → ANHSURGERY 14:53 → ANHLDR 14:53 → ANHOB2 17:48
PROVIDERS: Admitting Provider Obstetrics & Gynecology; Visit Provider Obstetrics & Gynecology
PROC: (CPT 59514; principal; 2025-01-17 12:00)
DX: O32.1XX0 Maternal care for breech presentation, not applicable or unspecified (principal); Z37.0 Single live birth; Z3A.38 38 weeks gestation of pregnancy
CPT/HCPCS: 36415; 85014; 85018; 85025; 86593; 86703; 86850; 86900; 86901; A9270; G0432; J0690; J1596; J1885; J2274; J2371; J2405; J2590; J7120